=== PATIENT | male | born 1975 | race Caucasian/White ===

== ENCOUNTER 2023-03-08 13:51 | Emergency (ER) | payer OTHER, SELFPAY ==
[2023-03-08 13:53] VITALS: BP 163/112; PULSE 109; RESP 18; TEMP 36.4; O2SAT 99; BMI 32.4
--- NOTE | 2023-03-08 14:21 | ED.ABDPAIN1 ---
HPI - Abdominal Pain General Chief Complaint: Abdominal Pain Stated Complaint: ABDOMEN PAIN Time Seen by Provider: 03/08/23 14:16 Source: patient Mode of arrival: walk-in Limitations: no limitations History of Present Illness HPI narrative: patient states he is having left-sided abdominal pain. His last episode of diverticular disease was approximately three months ago when he took antibiotics. He has not had surgery for this condition. He has had a previous cholecystectomy. The pain is only in his left mid and left lower quadrant. He had some chills at home but doesn't know if he is running a fever. He's not had a vomiting or use of antibiotics recently. He has had some loose stool. He's not seen any bright red blood. Related Data Home Medications Medication Instructions Recorded Confirmed atorvastatin 80 mg tablet 80 mg PO DAILY 03/08/23 03/08/23 cariprazine 6 mg capsule (Vraylar) 6 mg PO DAILY 03/08/23 03/08/23 ciprofloxacin HCl 500 mg tablet 500 mg PO Q12H 03/08/23 03/08/23 clopidogrel 75 mg tablet (Plavix) 75 mg PO DAILY 03/08/23 03/08/23 divalproex 250 mg tablet,delayed 250 mg PO QID 03/08/23 03/08/23 release (Depakote) divalproex 500 mg tablet,delayed 500 mg PO QID 03/08/23 03/08/23 release (Depakote) hydroxyzine HCl 50 mg tablet 50 mg PO Q8H 03/08/23 03/08/23 levothyroxine 125 mcg capsule 125 mcg PO DAILY 03/08/23 03/08/23 liothyronine 5 mcg tablet (Cytomel) 5 mcg PO DAILY 03/08/23 03/08/23 metformin 500 mg 24 hr 500 mg PO BID 03/08/23 03/08/23 tablet,extended release (Glumetza) Allergies Allergy/AdvReac Type Severity Reaction Status Date / Time No Known Drug Allergies Allergy Verified 03/08/23 13:58 PFSH PFS Social History Smoking status: Current every day smoker Exam Narrative Exam Narrative: This document has been composed with a new electronic medical record and dragging voice recognition system. This document may not fully inaccurately reflect the entirety of the patient encounter. this patient was ambulatory to his bed. On examination he is awake alert with mild discomfort into the mid periumbilical and left mid abdomen. Does not appear ill or toxic. Vital signs been reviewed. Constitutional Vital Signs - 24 hr 03/08/23 13:53 03/08/23 15:20 Temperature 97.6 F Pulse Rate [Monitor] 109 H Respiratory Rate 18 Blood Pressure [Left Arm] 163/112 H 148/90 H Pulse Oximetry 99 Oxygen Delivery Method Room Air Respiratory Common normals: normal respiratory effort, no retractions and no use of accessory muscles GI Common normals: Normal to inspection, nondistended, normoactive bowel sounds present Inspection: normal to inspection Auscultation: normoactive bowel sounds Palpation: soft and no hepatosplenomegaly; non-tender, no guarding, no hepatosplenomegaly, no hepatomegaly, no splenomegaly, no hernia, no mass and no pulsatile mass Percussion: normal to percussion Course Vital Signs Vital signs: Vital Signs Temperature 97.6 F 03/08/23 13:53 Pulse Rate 109 H 03/08/23 13:53 Respiratory Rate 18 03/08/23 13:53 Blood Pressure 163/112 H 03/08/23 13:53 Pulse Oximetry 99 03/08/23 13:53 Oxygen Delivery Method Room Air 03/08/23 13:53 Temperature 97.6 F 03/08/23 13:53 Pulse Rate 109 H 03/08/23 13:53 Respiratory Rate 18 03/08/23 13:53 Blood Pressure 148/90 H 03/08/23 15:20 Pulse Oximetry 99 03/08/23 13:53 Oxygen Delivery Method Room Air 03/08/23 13:53 MDM - Abdominal Pain MDM Narrative Medical decision making narrative: after obtaining the history and performing clinical examination laboratory testing and CT imaging were advised. Symptoms to me which just more of a diffuse colitis as opposed to diverticular disease but that cannot be ruled out. Does not have findings of an acute surgical abdomen at this time. His CT scan is consistent with mild diffuse inflammation of the colon with no focal abscess obstruction or other abnormalities. His laboratory testing was reviewed. Findings were discussed in detail with the patient we will start him on antibiotic therapy and clear fluids. Lab Data Labs: Lab Results 03/08/23 Range/Units 14:00 WBC 9.3 (4.0-11.0) 10^3/uL RBC 5.00 (4.70-6.10) 10^6/uL Hgb 15.2 (14.0-18.0) g/dL Hct 44.5 (42.0-54.0) % MCV 89.0 (80.0-94.0) fL MCH 30.4 (25.9-34.0) pg MCHC 34.2 (29.9-35.2) g/dL RDW 12.9 (11.0-15.0) % Plt Count 214 (150-450) 10^3/uL MPV 12.9 (9.5-13.5) fL Neut % (Auto) 55.1 (43.0-75.0) % Lymph % (Auto) 32.5 (20.5-60.0) % [place] % (Auto) 10.4 (1.7-12.0) % Eos % (Auto) 1.4 (0.9-7.0) % Baso % (Auto) 0.3 (0.2-2.0) % Neut # (Auto) 5.1 (1.4-6.5) 10^3/uL Lymph # (Auto) 3.0 (1.2-3.8) 10^3/uL [place] # (Auto) 1.0 H (0.3-0.8) 10^3/uL Eos # (Auto) 0.1 (0.0-0.7) 10^3/uL Baso # (Auto) 0.0 (0.0-0.1) 10^3/uL Abs Immat Gran (auto) 0.03 (0.00-0.03) 10^3/uL Imm/Tot Granulo (auto) 0.3 (0.0-0.5) % Sodium 142 (136-145) mmol/L Potassium 3.7 (3.5-5.1) mmol/L Chloride 105 (98-107) mmol/L Carbon Dioxide 26.1 (21.0-32.0) mmol/L Anion Gap 14.6 BUN 14.0 (7.0-18.0) mg/dL Creatinine 1.02 (0.70-1.30) mg/dL Est GFR ( Amer) >60 (>=60) Est GFR (Non-Af Amer) >60 (>=60) BUN/Creatinine Ratio 13.7 Glucose 116 H (74-106) mg/dL Lactate 1.2 (0.4-2.0) mmol/L Calcium 9.7 (8.5-10.1) mg/dL Total Bilirubin 0.4 (0.2-1.0) mg/dL AST 17 (15-37) U/L ALT 29 (16-63) U/L Alkaline Phosphatase 107 (46-116) U/L Total Protein 8.5 H (6.4-8.2) g/dL Albumin 4.5 (3.4-5.0) g/dL Globulin 4.0 g/dL Albumin/Globulin Ratio 1.1 Discharge Plan Discharge Chief Complaint: Abdominal Pain Clinical Impression: Colitis Patient Disposition: Home, Self-Care Time of Disposition Decision: 16:09 Condition: Good Mode of Transportation: Private Vehicle Prescriptions / Home Meds: No Action metformin [Glumetza] 500 mg tablet,ER regina.retention 24 hr 500 mg PO BID clopidogrel [Plavix] 75 mg tablet 75 mg PO DAILY levothyroxine 125 mcg capsule 125 mcg PO DAILY hydroxyzine HCl 50 mg tablet 50 mg PO Q8H liothyronine [Cytomel] 5 mcg tablet 5 mcg PO DAILY Vraylar 6 mg capsule 6 mg PO DAILY atorvastatin 80 mg tablet 80 mg PO DAILY divalproex [Depakote] 250 mg tablet,delayed release (DR/EC) 250 mg PO QID divalproex [Depakote] 500 mg tablet,delayed release (DR/EC) 500 mg PO QID ciprofloxacin HCl 500 mg tablet 500 mg PO Q12H Rx Instructions: X 7 DAYS Instructions: Colitis (ED) Stand Alone Forms: Portal Instructions Referrals: Lucille Mccord MD [Primary Care Provider] - 1 week Discharge Date/Time: 03/08/23 16:28
--- NOTE | 2023-03-08 14:25 | CT_ITS ---
[address] [address] Patient Name: MALLORY CROWDER MRN: [id number] date: 1975 Sex: M Assigned Patient Location: ER Current Patient Location: Accession/Order Number: [id number] Exam Date: 03/08/2023 14:40 Report Date: 03/08/2023 15:58 At the request of: HERBIE JAY Procedure: CT abdomen pelvis w con EXAMINATION: CT abdomen pelvis w con HISTORY: pain ; abdominal pain, constant nausea and diarrhea COMPARISON: CT abdomen pelvis 01/19/2023 TECHNIQUE: Axial, Coronal, and Sagittal images were obtained without and/or with IV contrast as indicated by examination type. Dose reduction techniques were achieved by using automated exposure control and/or adjustment of mA and/or kV according to patient size and/or use of iterative reconstruction technique. FINDINGS: LUNG BASES: No visible pulmonary or pleural disease. LIVER: No enlargement, atrophy, suspicious density, or significant focal lesion. BILIARY: Cholecystectomy. PANCREAS: No lesion, fluid collection, or abnormal duct dilatation. SPLEEN: No enlargement or focal lesion. ADRENALS: No mass or enlargement. KIDNEYS: No mass, obstruction, or calcification. BOWEL/MESENTERY: Mild circumferential, slightly edematous wall thickening throughout majority of the colon. Fluid-filled loops of small bowel. No bowel obstruction, mass, free air, free fluid. Normal appendix. AORTA/VASCULAR: No aneurysm or dissection. RETROPERITONEUM: No mass or adenopathy. LYMPH NODES: No adenopathy. URINARY BLADDER: No visible focal wall thickening, lesion, or calculus. PELVIC ORGANS: No visible mass. Pelvic organs appropriate for patient age. ABDOMINAL WALL: No mass or hernia. BONES: No bony lesion or fracture. OTHER: Negative. IMPRESSION: 1.Possible mild colitis. Otherwise unremarkable CT abdomen and pelvis. Electronically authenticated by: ZURI SAGE Date: 03/08/2023 15:58
[2023-03-08] MEDS: MORPHINE SULFATE 2 MG/ML SYRINGE IM (14:31)
[2023-03-08] MEDS: 0.9 % SODIUM CHLORIDE 1,000 ML 100 ML IV (14:31)
[2023-03-08] MEDS: ONDANSETRON PF 4 MG/2 ML VIAL IV (14:31)
[2023-03-08 14:44] LABS: Basophils Percent Auto 0.3 % (0.2-2.0); Eosinophils Absolute Auto 0.1 10^3/uL (0.0-0.7); Eosinophils Percent Auto 1.4 % (0.9-7.0); Hematocrit 44.5 % (42.0-54.0); Hemoglobin 15.2 g/dL (14.0-18.0); Immature Granulocytes Abs Auto 0.03 10^3/uL (0.00-0.03); Immature Granulocytes Pct Auto 0.3 % (0.0-0.5); Lymphocytes Percent Auto 32.5 % (20.5-60.0); Mean Corpuscular HGB Conc 34.2 g/dL (29.9-35.2); Mean Corpuscular Hemoglobin 30.4 pg (25.9-34.0); Mean Platelet Volume 12.9 fL (9.5-13.5); Monocytes Percent Auto 10.4 % (1.7-12.0); Neutrophils Absolute Auto 5.1 10^3/uL (1.4-6.5); Neutrophils Percent Auto 55.1 % (43.0-75.0); Platelet Count 214 10^3/uL (150-450); Red Cell Distribution Width 12.9 % (11.0-15.0); White Blood Count 9.3 10^3/uL (4.0-11.0)
[2023-03-08 14:49] LABS: Lactate/Lactic Acid 1.2 mmol/L (0.4-2.0)
[2023-03-08 14:58] LABS: Alanine Aminotransferase 29 U/L (16-63); Albumin Globulin Ratio 1.1; Albumin Level 4.5 g/dL (3.4-5.0); Alkaline Phosphatase 107 U/L (46-116); Anion Gap 14.6; Aspartate Amino Transferase 17 U/L (15-37); BUN Creatinine Ratio 13.7; Bilirubin Total 0.4 mg/dL (0.2-1.0); Calcium 9.7 mg/dL (8.5-10.1); Carbon Dioxide 26.1 mmol/L (21.0-32.0); Chloride 105 mmol/L (98-107); Estimated GFR (African America >60 (>=60); Estimated GFR (Non-African Ame >60 (>=60); Glucose 116 mg/dL (74-106); Potassium 3.7 mmol/L (3.5-5.1); Sodium 142 mmol/L (136-145); Total Protein 8.5 g/dL (6.4-8.2)
[2023-03-08 15:20] VITALS: BP 148/90
== END 2023-03-08 16:28 | disposition home or self-care (01) ==
PROVIDERS: Emergency Provider Emergency Medicine Emergency Medical Services; PCP Specialist
DX: K52.9 Noninfective gastroenteritis and colitis, unspecified (principal); Z90.49 Acquired absence of other specified parts of digestive tract; Z79.890 Hormone replacement therapy; Z79.899 Other long term (current) drug therapy; Z79.84 Long term (current) use of oral hypoglycemic drugs; F17.210 Nicotine dependence, cigarettes, uncomplicated
CPT/HCPCS: 36415; 74177; 80053; 81003; 83605; 85025; 96372; 96374; 99284; Q9967

== ENCOUNTER 2024-02-15 21:17 | Emergency (ER) | payer SELFPAY ==
[2024-02-15] VITALS (10 sets, daily range): BP systolic 153–154; BP diastolic 88–94; PULSE 59–83; TEMP 36.7; O2SAT 79–100; BMI 25.0
--- NOTE | 2024-02-15 21:29 | ECG_ITS ---
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
--- NOTE | 2024-02-15 21:44 | PC.NURSE ---
Pt reports yesterday at work coughing duee to sensatioon of something stuck in throat, then felt a pop and has had burning in throat since. Pt also has a burning chest pain with deep inspiration. Hx CAD and bypass.
--- NOTE | 2024-02-15 21:53 | XR_ITS ---
The [address] [address] Patient Name: MALLORY CROWDER MRN: [id number] date: 1975 Sex: M Assigned Patient Location: ED.MAIN Current Patient Location: ER Accession/Order Number: [id number] Exam Date: 02/15/2024 22:12 Report Date: 02/15/2024 22:47 At the request of: TUTU MARKER Procedure: XR chest 1V EXAM: XR chest 1V HISTORY: CP COMPARISON: None. TECHNIQUE: Single view of the chest FINDINGS: Cardiac megaly. Sternotomy wires. No definitive focal consolidation, pleural effusion, pulmonary congestion or pneumothorax. XR/XR chest 1V IMPRESSION: No acute findings. Electronically authenticated by: PHUONG RODRÍGUEZ Date: 02/15/2024 22:47
--- NOTE | 2024-02-15 21:53 | XR_ITS ---
The [address] [address] Patient Name: MALLORY CROWDER MRN: [id number] date: 1975 Sex: M Assigned Patient Location: ED.MAIN Current Patient Location: ER Accession/Order Number: [id number] Exam Date: 02/15/2024 22:12 Report Date: 02/15/2024 22:56 At the request of: TUTU MARKER Procedure: XR soft tissue neck Examination:XR soft tissue neck INDICATION:? neck mass COMPARISON:None. TECHNIQUE:Frontal/lateral soft tissue neck x-ray images are present. FINDINGS:The oropharyngeal airway is well-maintained. The epiglottis is well visualized and is not inflamed. Prevertebral soft tissues are within normal limits. On the frontal projection, there is asymmetric soft tissue attenuation in the right soft tissue neck which is nonspecific. XR/XR soft tissue neck IMPRESSION: Asymmetric soft tissue density in the right soft tissue neck on the frontal projection. Correlate with physical exam findings. Otherwise unremarkable soft tissue neck x-ray. Electronically authenticated by: ANDRÉS CRAVEN Date: 02/15/2024 22:56
[2024-02-15 21:57] LABS: Basophils Absolute Auto 0.1 10^3/uL (0.0-0.1); Basophils Percent Auto 0.9 % (0.2-2.0); Eosinophils Absolute Auto 0.2 10^3/uL (0.0-0.7); Hematocrit 45.3 % (42.0-54.0); Hemoglobin 15.8 g/dL (14.0-18.0); Immature Granulocytes Abs Auto 0.02 10^3/uL (0.00-0.03); Immature Granulocytes Pct Auto 0.2 % (0.0-0.5); Lymphocytes Absolute Auto 4.3 10^3/uL (1.2-3.8); Mean Corpuscular HGB Conc 34.9 g/dL (29.9-35.2); Mean Corpuscular Hemoglobin 30.4 pg (25.9-34.0); Mean Corpuscular Volume 87.3 fL (80.0-94.0); Mean Platelet Volume 12.8 fL (9.5-13.5); Monocytes Absolute Auto 0.8 10^3/uL (0.3-0.8); Monocytes Percent Auto 8.5 % (1.7-12.0); Neutrophils Absolute Auto 4.5 10^3/uL (1.4-6.5); Neutrophils Percent Auto 45.4 % (43.0-75.0); Platelet Count 209 10^3/uL (150-450); Red Blood Count 5.19 10^6/uL (4.70-6.10); Red Cell Distribution Width 12.7 % (11.0-15.0); White Blood Count 9.9 10^3/uL (4.0-11.0)
[2024-02-15] MEDS: 0.9 % SODIUM CHLORIDE 1,000 ML 1000 ML IV (22:01)
[2024-02-15] MEDS: ASPIRIN 81 MG TAB.CHEW 324 MG PO (22:01)
[2024-02-15 22:12] LABS: D Dimer 0.24 mg/L FEU (<=0.59)
--- NOTE | 2024-02-15 22:13 | ED.CHESTPAI1 ---
HPI - Chest Pain General Chief Complaint: Chest Pain Stated Complaint: Chest Pain, Sore Throat Time Seen by Provider: 02/15/24 21:31 Source: patient and friend Mode of arrival: walk-in Limitations: no limitations History of Present Illness HPI narrative: This 48-year-old male with a history of tobacco use and coronary artery disease who had a double bypass in 2017 presents for evaluation of midsternal chest pain and burning in his throat. He states that he felt a lump in the back of his throat and points to his lower anterior cervical spine area, this was several weeks ago. He states that he thinks that the lump exploded and was bleeding. Since that time he has developed midsternal chest pain and his friend who is with him states when he got up today he felt like he was going to pass out. He has mild shortness of breath. He takes aspirin and a blood thinner, blood pressure medication and a cholesterol medication. He states he took those prior to arrival. He has mild shortness of breath. He denies any dizziness or diaphoresis. When he has the chest pain it is in his left upper chest area. He describes it as a numbing pain he denies that it radiates into his arm back or jaw. He has no abdominal pain nausea vomiting or diarrhea. He has not had any fever. He has no back pain. He does not currently follow-up with a webmaster and has not had a cardiac workup since his bypass surgery in 2017. Related Data Home Medications ?Medication ?Instructions ?Recorded ?Confirmed atorvastatin 80 mg tablet 80 mg PO DAILY 03/08/23 03/08/23 cariprazine 6 mg capsule (Vraylar) 6 mg PO DAILY 03/08/23 03/08/23 ciprofloxacin HCl 500 mg tablet 500 mg PO Q12H 03/08/23 03/08/23 clopidogrel 75 mg tablet (Plavix) 75 mg PO DAILY 03/08/23 03/08/23 divalproex 250 mg tablet,delayed 250 mg PO QID 03/08/23 03/08/23 release (Depakote) divalproex 500 mg tablet,delayed 500 mg PO QID 03/08/23 03/08/23 release (Depakote) hydroxyzine HCl 50 mg tablet 50 mg PO Q8H 03/08/23 03/08/23 levothyroxine 125 mcg capsule 125 mcg PO DAILY 03/08/23 03/08/23 liothyronine 5 mcg tablet (Cytomel) 5 mcg PO DAILY 03/08/23 03/08/23 metformin 500 mg 24 hr 500 mg PO BID 03/08/23 03/08/23 tablet,extended release (gastric retention) (Glumetza) Allergies Allergy/AdvReac Type Severity Reaction Status Date / Time No Known Drug Allergies Allergy Verified 02/15/24 21:29 Review of Systems ROS Status of ROS 10 or more systems reviewed and unremarkable except as noted in history and below [facility] Social History Smoking status: Current every day smoker Exam Narrative Exam Narrative: Vital signs and Nursing Notes reviewed: Patient is afebrile with a normal pulse, blood pressure is elevated at 154/88, he is not hypoxic with pulse ox of 100% on room air General: Nontoxic male, no respiratory distress, he moves easily about the stretcher HEENT: Normocephalic atraumatic, mucous membranes are moist and pink, he is edentulous. Conjunctivae are pink, vision is grossly intact Neck: Supple, no meningeal signs, no anterior or posterior cervical lymphadenopathy, no appreciable palpable mass Chest: Lungs are clear to auscultation with good air entry, there is no wheezing rhonchi or rales appreciated no accessory muscle use, patient is speaking in complete sentences-no chest wall tenderness to palpation CVS: Regular rate and rhythm S1-S2, no murmurs rubs or gallops, pulses are brisk and equal bilaterally ABD: Soft, nondistended, nontender, no rebound guarding or rigidity, bowel sounds are normal, no pulsatile masses appreciated Extremities: Moving all extremities, no lower extremity tenderness or swelling noted, negative Homans' sign, pulses are brisk and equal bilaterally Skin: Normal in appearance without rash,pallor, petechiae or purpura Neuro: No focal deficits Constitutional Vital Signs, click to edit/add: Last Vital Signs Temp 98.0 F 02/15/24 21:22 Pulse 65 02/16/24 00:20 Resp 18 02/16/24 00:20 BP 153/94 H 02/15/24 22:58 Pulse Ox 96 02/16/24 00:20 O2 Del Method Room Air 02/15/24 21:22 Course Vital Signs Vital signs: Vital Signs Temperature 98.0 F 05/15/24 21:22 Pulse Rate 83 02/15/24 21:22 Respiratory Rate 20 02/15/24 21:22 Blood Pressure 154/88 H 02/15/24 21:22 Pulse Oximetry 100 02/15/24 21:22 Oxygen Delivery Method Room Air 02/15/24 21:22 Temperature 98.0 F 02/15/24 21:22 Pulse Rate 65 02/16/24 00:20 Respiratory Rate 18 02/16/24 00:20 Blood Pressure 153/94 H 02/15/24 22:58 Pulse Oximetry 96 02/16/24 00:20 Oxygen Delivery Method Room Air 02/15/24 21:22 MDM - Chest Pain MDM Narrative Medical decision making narrative: This 48-year-old male with a history of heart disease who is an ongoing smoker presents for evaluation of multiple complaints; he states that several weeks ago he had a lump in his lower throat area that he feels opened up and bled. He still has some burning sensation in his anterior throat greatest on the right. He also developed left-sided chest pain earlier today and felt dizzy like he was going to pass out. The chest pain was nonradiating and not associated with dizziness or diaphoresis. He did take his regular medications including aspirin, cholesterol medication and his blood thinner, Plavix, before coming to the emergency department. Upon arrival he was noted to have a mildly elevated blood pressure at 153/94. An EKG was done upon arrival that is a sinus rhythm with a sinus arrhythmia at 70 bpm with no acute changes. An IV was placed and he was medicated with IV fluids and aspirin. Cardiac workup including CBC with differential, comprehensive metabolic profile, D-dimer, troponin and delta troponin was ordered. He has a normal white count and hemoglobin. He has normal electrolytes. These were compared to prior labs and are essentially the same. potassium is mildly low at 3.0 and he was given an oral dose of potassium in the ED. D-dimer was normal. Troponin and delta troponin were both normal. The patient's TSH is elevated. He states that 4 to 5 months ago his TSH was also elevated at that time and Dr. Peterson increased his Synthroid. Chest x-ray was reviewed by radiology and does not show any acute findings. Soft tissue neck x-ray was also reviewed by radiology with some abnormal finding in the soft tissues of the right side of the neck where the patient is having his discomfort. CT scan of the neck with IV contrast was then ordered and is negative for acute findings. The results of the CT scan was discussed with the patient and he was given a copy of the report. Heart score is 3. The patient has remained hemodynamically stable in the emergency department. He has been on the cardiac cath technologist without any ectopy or arrhythmia. He states he is feeling somewhat better after the IV fluids. He was medicated with a dose of Lowry for ongoing chest pain, again non-radiating and going on for a period of time causing him to take multiple doses of ibuprofen. The patient states that he is feeling better but generally just feels weak. I reviewed all of his labs with him. His weakness may be reflective of his thyroid being elevated and a certain state of hypothyroidism. The patient does work nights. He states he does not go to bed until around noon and does sleep well. I offered him referral to outpatient cardiology which he is in agreement with that he does not follow-up with cardiology despite having a double bypass in the past. Smoking cessation was discussed with him as well. Medical Records Data Medical records narrative: [place] [address] XRay Report Signed Patient: MALLORY CROWDER III MR#: [id number] : 1975 Acct:[id number] Age/Sex: 48 / M ADM Date: 02/15/24 Loc: ER Attending Dr: Ordering Physician: Arlyn Cooley Date of Service: 02/15/24 Procedure(s): XR soft tissue neck Accession Number(s): [id number] cc: Arlyn Cooley; CHRIS PETERSON ~ The [place] [id number] Patient Name: MALLORY CROWDER MRN: [id number] date: 1975 Sex: M Assigned Patient Location: ED.MAIN Current Patient Location: ER Accession/Order Number: [id number] Exam Date: 02/15/2024 22:12 Report Date: 02/15/2024 22:56 At the request of: ARLYN COOLEY Procedure: XR soft tissue neck Examination:XR soft tissue neck INDICATION:? neck mass COMPARISON:None. TECHNIQUE:Frontal/lateral soft tissue neck x-ray images are present. FINDINGS:The oropharyngeal airway is well-maintained. The epiglottis is well visualized and is not inflamed. Prevertebral soft tissues are within normal limits. On the frontal projection, there is asymmetric soft tissue attenuation in the right soft tissue neck which is nonspecific. XR/XR soft tissue neck IMPRESSION: Asymmetric soft tissue density in the right soft tissue neck on the frontal projection. Correlate with physical exam findings. Otherwise unremarkable soft tissue neck x-ray. Electronically authenticated by: ANDRÉS CRAVEN Date: 02/15/2024 22:56 [place] [address] XRay Report Signed Patient: MALLORY CROWDER III MR#: [id number] : 1975 Acct:[id number] Age/Sex: 48 / M ADM Date: 02/15/24 Loc: ER Attending Dr: Ordering Physician: Arlyn Cooley Date of Service: 02/15/24 Procedure(s): XR chest 1V Accession Number(s): [id number] cc: Arlyn Cooley; CHRIS PETERSON ~ [facility] [place] [address] Patient Name: MALLORY CROWDER MRN: [facility]:[id number] date: 1975 Sex: M Assigned Patient Location: ED.MAIN Current Patient Location: ER Accession/Order Number: [id number] Exam Date: 02/15/2024 22:12 Report Date: 02/15/2024 22:47 At the request of: ARLYN COOLEY Procedure: XR chest 1V EXAM: XR chest 1V HISTORY: CP COMPARISON: None. TECHNIQUE: Single view of the chest FINDINGS: Cardiac megaly. Sternotomy wires. No definitive focal consolidation, pleural effusion, pulmonary congestion or pneumothorax. XR/XR chest 1V IMPRESSION: No acute findings. Electronically authenticated by: PHUONG RODRÍGUEZ Date: 02/15/2024 22:47 [place] [address] CT Scan Report Signed Patient: MALLORY CROWDER III MR#: [id number] : 1975 Acct:[id number] Age/Sex: 48 / M ADM Date: 02/15/24 Loc: ER Attending Dr: Ordering Physician: Arlyn Cooley Date of Service: 02/15/24 Procedure(s): CT soft tissue neck w con Accession Number(s): [id number] cc: CHRIS PETERSON ~ The [address] [address] Patient Name: MALLORY CROWDER MRN: [id number] date: 1975 Sex: M Assigned Patient Location: ER Current Patient Location: ER Accession/Order Number: [id number] Exam Date: 02/15/2024 23:48 Report Date: 02/16/2024 01:19 At the request of: ARLYN COOLEY Procedure: CT soft tissue neck w con EXAM: CT soft tissue neck w con HISTORY: abn finding on neck x-ray COMPARISON: None. TECHNIQUE: IV contrast-enhanced CT imaging of the neck. This CT exam was performed using one or more of the following dose reduction techniques: Automated exposure control, adjustment of the mA and/or KV according to patient size, or use of iterative reconstruction technique. Unless otherwise stated, incidental findings do not require dedicated follow-up imaging. FINDINGS: The skull base is intact. The paranasal sinuses and mastoid air cells are clear. The nasopharynx, oropharynx, hypopharynx, larynx, and trachea are patent and symmetric. The lung apices are clear. The parotid and submandibular glands are symmetric bilaterally. The thyroid enhances homogeneously. There are shotty bilateral cervical lymph nodes. The bones are intact without acute abnormality. CT/CT soft tissue neck w con IMPRESSION: No acute abnormality. Electronically authenticated by: FELISA BONNER Date: 02/16/2024 01:19 Lab Data Attestation: I reviewed the patient's lab results. Lab results narrative: Labs are reviewed and are normal. Normal troponin and delta troponin Labs: Lab Results 02/15/24 02/15/24 Range/Units 21:35 23:28 WBC 9.9 (4.0-11.0) 10^3/uL RBC 5.19 (4.70-6.10) 10^6/uL Hgb 15.8 (14.0-18.0) g/dL Hct 45.3 (42.0-54.0) % MCV 87.3 (80.0-94.0) fL MCH 30.4 (25.9-34.0) pg MCHC 34.9 (29.9-35.2) g/dL RDW 12.7 (11.0-15.0) % Plt Count 209 (150-450) 10^3/uL MPV 12.8 (9.5-13.5) fL Neut % (Auto) 45.4 (43.0-75.0) % Lymph % (Auto) 43.0 (20.5-60.0) % Gilchrist % (Auto) 8.5 (1.7-12.0) % Eos % (Auto) 2.0 (0.9-7.0) % Baso % (Auto) 0.9 (0.2-2.0) % Neut # (Auto) 4.5 (1.4-6.5) 10^3/uL Lymph # (Auto) 4.3 H (1.2-3.8) 10^3/uL Gilchrist # (Auto) 0.8 (0.3-0.8) 10^3/uL Eos # (Auto) 0.2 (0.0-0.7) 10^3/uL Baso # (Auto) 0.1 (0.0-0.1) 10^3/uL Abs Immat Gran (auto) 0.02 (0.00-0.03) 10^3/uL Imm/Tot Granulo (auto) 0.2 (0.0-0.5) % D-Dimer 0.24 (<=0.59) mg/L FEU Sodium 140 (136-145) mmol/L Potassium 3.0 L (3.5-5.1) mmol/L Chloride 103 (98-107) mmol/L Carbon Dioxide 25.5 (21.0-32.0) mmol/L Anion Gap 14.5 BUN 8.0 (7.0-18.0) mg/dL Creatinine 1.24 (0.70-1.30) mg/dL Est GFR ( Amer) >60 (>=60) Est GFR (Non-Af Amer) >60 (>=60) BUN/Creatinine Ratio 6.5 Glucose 116 H (74-106) mg/dL Calcium 9.6 (8.5-10.1) mg/dL Total Bilirubin 0.6 (0.2-1.0) mg/dL AST 12 L (15-37) U/L ALT 14 L (16-63) U/L Alkaline Phosphatase 81 (46-116) U/L Troponin I High Sens 4.5 5.2 (4.0-76.1) pg/mL Total Protein 8.2 (6.4-8.2) g/dL Albumin 4.5 (3.4-5.0) g/dL Globulin 3.7 g/dL Albumin/Globulin Ratio 1.2 Free T4 1.33 (0.76-1.46) ng/dL TSH & Free T4 Interp 4.923 H (0.358-3.740) uIU/mL ECG Data Attestation: I personally reviewed and interpreted this ECG as follows: (Sinus rhythm with sinus arrhythmia at 70 bpm. Incomplete right bundle branch block, normal axis, normal intervals, no acute ST segment elevation or T wave inversion) Smoking Cessation Time spent discussing smoking cessation with patient: 3 to 10 minutes Patient Acknowledges Need for Cessation: Yes Heart Score History: Slightly/Non-Suspicious ECG: Normal Age: >45-<65 years Risk Factors: >3 Risk Factors/ HX of CAD:2 Troponin: <Normal Limit Total Heart Score Recommendations & Risks:: 3 Discharge Plan Discharge Stand Alone Forms: Portal Instructions Chief Complaint: Chest Pain Clinical Impression: Hypothyroidism, Cervical lymphadenopathy, Atypical chest pain, Hypokalemia Patient Disposition: Home, Self-Care Time of Disposition Decision: 01:47 Condition: Good Prescriptions / Home Meds: No Action metformin [Glumetza] 500 mg tablet,ER regina.retention 24 hr 500 mg PO BID clopidogrel [Plavix] 75 mg tablet 75 mg PO DAILY levothyroxine 125 mcg capsule 125 mcg PO DAILY hydroxyzine HCl 50 mg tablet 50 mg PO Q8H liothyronine [Cytomel] 5 mcg tablet 5 mcg PO DAILY Vraylar 6 mg capsule 6 mg PO DAILY atorvastatin 80 mg tablet 80 mg PO DAILY divalproex [Depakote] 250 mg tablet,delayed release (DR/EC) 250 mg PO QID divalproex [Depakote] 500 mg tablet,delayed release (DR/EC) 500 mg PO QID ciprofloxacin HCl 500 mg tablet 500 mg PO Q12H Rx Instructions: X 7 DAYS Print Language: [place] Instructions: Lymphadenopathy (ED), Hypokalemia (ED), Hypothyroidism (ED), Noncardiac Chest Pain (ED) Referrals: WOOD HERNANDEZ [Physician] - 1 week CHRIS PETERSON [Primary Care Provider] - 1 week
[2024-02-15 22:18] LABS: Alanine Aminotransferase 14 U/L (16-63); Albumin Globulin Ratio 1.2; Albumin Level 4.5 g/dL (3.4-5.0); Alkaline Phosphatase 81 U/L (46-116); Anion Gap 14.5; Aspartate Amino Transferase 12 U/L (15-37); BUN Creatinine Ratio 6.5; Bilirubin Total 0.6 mg/dL (0.2-1.0); Calcium 9.6 mg/dL (8.5-10.1); Carbon Dioxide 25.5 mmol/L (21.0-32.0); Chloride 103 mmol/L (98-107); Estimated GFR (African America >60 (>=60); Estimated GFR (Non-African Ame >60 (>=60); Globulin 3.7 g/dL; Glucose 116 mg/dL (74-106); Sodium 140 mmol/L (136-145); Total Protein 8.2 g/dL (6.4-8.2); Troponin I High Sensitivity 4.5 pg/mL (4.0-76.1)
[2024-02-15 22:22] LABS: TSH W/ REFLEX FT4 4.923 uIU/mL (0.358-3.740)
[2024-02-15 22:47] LABS: Free T4 1.33 ng/dL (0.76-1.46)
--- NOTE | 2024-02-15 23:21 | CT_ITS ---
The [address] [address] Patient Name: MALLORY CROWDER MRN: [id number] date: 1975 Sex: M Assigned Patient Location: ER Current Patient Location: Accession/Order Number: [id number] Exam Date: 02/15/2024 23:48 Report Date: 02/16/2024 01:19 At the request of: TUTU MARKER Procedure: CT soft tissue neck w con EXAM: CT soft tissue neck w con HISTORY: abn finding on neck x-ray COMPARISON: None. TECHNIQUE: IV contrast-enhanced CT imaging of the neck. This CT exam was performed using one or more of the following dose reduction techniques: Automated exposure control, adjustment of the mA and/or KV according to patient size, or use of iterative reconstruction technique. Unless otherwise stated, incidental findings do not require dedicated follow-up imaging. FINDINGS: The skull base is intact. The paranasal sinuses and mastoid air cells are clear. The nasopharynx, oropharynx, hypopharynx, larynx, and trachea are patent and symmetric. The lung apices are clear. The parotid and submandibular glands are symmetric bilaterally. The thyroid enhances homogeneously. There are shotty bilateral cervical lymph nodes. The bones are intact without acute abnormality. CT/CT soft tissue neck w con IMPRESSION: No acute abnormality. Electronically authenticated by: FELISA BONNER Date: 02/16/2024 01:19
[2024-02-15 23:50] LABS: Troponin I High Sensitivity 5.2 pg/mL (4.0-76.1)
[2024-02-16 00:20] VITALS: PULSE 65; O2SAT 96
[2024-02-16] MEDS: ONDANSETRON 4 MG RAPDIS TABLET SL (01:42)
[2024-02-16] MEDS: HYDROCODONE/ACET 5-325 MG TABLET 1 TAB PO (01:42)
[2024-02-16] MEDS: POTASSIUM CHLORIDE 10 MEQ ER TABLET 20 MEQ PO (02:02)
[2024-02-16 02:04] VITALS: BP 148/86; PULSE 65; O2SAT 98
== END 2024-02-16 02:05 | disposition home or self-care (01) ==
PROVIDERS: Emergency Provider Emergency Medicine; PCP Family Medicine
DX: R07.89 Other chest pain (principal); E87.6 Hypokalemia; E03.9 Hypothyroidism, unspecified; R59.0 Localized enlarged lymph nodes; I25.10 Atherosclerotic heart disease of native coronary artery without angina pectoris; Z79.82 Long term (current) use of aspirin; Z79.02 Long term (current) use of antithrombotics/antiplatelets; Z79.899 Other long term (current) drug therapy; Z79.890 Hormone replacement therapy; F17.210 Nicotine dependence, cigarettes, uncomplicated; Z95.1 Presence of aortocoronary bypass graft
CPT/HCPCS: 36415; 70360; 70491; 71045; 80053; 84439; 84443; 84484; 85025; 85378; 93005; 99285; Q9967

== ENCOUNTER 2025-02-06 15:05 | Emergency (ER) | payer SELFPAY ==
[2025-02-06] VITALS (9 sets, daily range): BP systolic 139; BP diastolic 79; PULSE 55–72; TEMP 36.7; O2SAT 96–100
--- NOTE | 2025-02-06 15:25 | ECG_ITS ---
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 Measurements Intervals [place] Rate: 61 P: -7 RI: 154 QRS: 51 QRSD: 102 T: 30 QT: 390 QTc: 393 Interpretive Statements 1100 Sinus rhythm 2440 Incomplete right bundle branch block 9130 borderline ECG Compared to ECG 02/15/2024 21:29:15 Sinus arrhythmia no longer present Electronically Signed On 02-06-2025 18:18:25 EDT by WOOD HERNANDEZ M.D.
--- NOTE | 2025-02-06 15:26 | ED.GENADUL1 ---
HPI HPI - General Adult General Chief complaint: Chest Pain Stated complaint: pain when taking breath Time Seen by Provider: 02/06/25 15:06 Source: patient Mode of arrival: walk-in History of Present Illness HPI narrative: Patient is a 49-year-old male who presents to the emergency department for left-sided chest wall pain that is worse with deep breathing and movement for the last 4 days. Patient states last week he developed flulike symptoms of headache, cough. He is a 1 pack/day cigarette smoker. He states he occasionally has sputum production with coughing but has not had any hemoptysis. He states he has pain in the left anterior, superior lung area with deep breathing and movement, he is concerned he may have pneumonia. He has not had any fevers. 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 He takes Plavix daily. Related Data Home Medications ?Medication ?Instructions ?Recorded ?Confirmed atorvastatin 80 mg tablet 80 mg PO DAILY 03/08/23 02/06/25 cariprazine 6 mg capsule (Vraylar) 6 mg PO DAILY 03/08/23 02/06/25 clopidogrel 75 mg tablet (Plavix) 75 mg PO DAILY 03/08/23 02/06/25 divalproex 250 mg tablet,delayed 250 mg PO QID 03/08/23 02/06/25 release (Depakote) divalproex 500 mg tablet,delayed 500 mg PO QID 03/08/23 02/06/25 release (Depakote) hydroxyzine HCl 50 mg tablet 50 mg PO Q8H 03/08/23 02/06/25 levothyroxine 125 mcg capsule 125 mcg PO DAILY 03/08/23 02/06/25 liothyronine 5 mcg tablet (Cytomel) 5 mcg PO DAILY 03/08/23 02/06/25 metformin 500 mg 24 hr 500 mg PO BID 03/08/23 02/06/25 tablet,extended release (gastric retention) (Glumetza) Previous Rx's ?Medication ?Instructions ?Recorded albuterol sulfate 90 mcg/actuation 2 inh inhalation Q4H PRN shortness 02/06/25 aerosol inhaler of breath or wheezing #8.5 grams doxycycline hyclate 100 mg tablet 100 mg PO BID 10 days #20 tabs 02/06/25 methylprednisolone 4 mg tablets in See Rx Instructions .Route 02/06/25 a dose pack (Medrol (Lorenzo)) .COMPLEX #21 ea Allergies Allergy/AdvReac Type Severity Reaction Status Date / Time No Known Drug Allergies Allergy Verified 02/15/24 21:29 Opioid HPI Opioid Management Most Recent Opioid Data: Last Pain Scale 8 02/16/24, 01:42 Review of Systems ROS Constitutional Denies: fever or chills Ears, nose, mouth, and throat Denies: throat pain or nasal congestion Cardiovascular Reports: chest pain Respiratory Reports: cough; Denies: shortness of breath Gastrointestinal Denies: nausea or vomiting Integumentary/Breast Denies: rash Neurological Reports: headache Hematologic/Lymphatic Reports: easy bruising and easy bleeding PFSH PFS Social History Smoking status: Current every day smoker Little interest or pleasure in doing things: not at all Feeling down, depressed, or hopeless: not at all Exam Narrative Exam Narrative: Gen.: Awake, alert, in no distress Head: Normocephalic, atraumatic ENT: Moist mucous membranes Respiratory: No respiratory distress, lungs clear bilaterally, pain on inspiration. No rashes noted of the chest wall Cardio: Regular rate and rhythm Extremities: Moves extremities equally Psych: Normal mood and affect Neuro: No focal neuro deficit Skin: Warm, dry, intact Constitutional Vital Signs, click to edit/add: Last Vital Signs Temp 98.1 F 02/06/25 15:17 Pulse 72 02/06/25 15:17 Resp 18 02/06/25 15:17 BP 139/79 02/06/25 15:17 Pulse Ox 100 02/06/25 15:17 O2 Del Method Room Air 02/06/25 15:17 Course Vital Signs Vital signs: Vital Signs Temperature 98.1 F 02/06/25 15:17 Pulse Rate 72 02/06/25 15:17 Respiratory Rate 18 02/06/25 15:17 Blood Pressure 139/79 02/06/25 15:17 Pulse Oximetry 100 02/06/25 15:17 Oxygen Delivery Method Room Air 02/06/25 15:17 Temperature 98.1 F 02/06/25 15:17 Pulse Rate 72 02/06/25 15:17 Respiratory Rate 18 02/06/25 15:17 Blood Pressure 139/79 02/06/25 15:17 Pulse Oximetry 100 02/06/25 15:17 Oxygen Delivery Method Room Air 02/06/25 15:17 Medical Decision Making MDM Narrative Medical decision making narrative: Laboratory studies reviewed and noted within normal limits including troponin and D-dimer. Patient has had pain in the chest wall for 4 days, he will be discharged with steroids, antibiotic coverage for possible bronchitis. Suspect pleurisy as the cause of the chest pain. Chest x-ray shows no evidence of acute cardiopulmonary changes and vital signs are stable. Follow-up with PCP and return to the emergency department if symptoms change or worsen. SHARED APC VISIT, PHYSICIAN ATTESTATION: [id number] I performed a substantive part of the MDM during the patient?s E/M visit. I personally made or approved the documented management plan and acknowledge its risk of complications. Medical Records Medical records reviewed: Yes I reviewed the patient's medical records Lab Data Lab results reviewed: Yes I reviewed the patient's lab results Labs: Lab Results 02/06/25 Range/Units 15:30 WBC 4.6 (4.0-11.0) 10^3/uL RBC 4.79 (4.70-6.10) 10^6/uL Hgb 14.9 (14.0-18.0) g/dL Hct 42.1 (42.0-54.0) % MCV 87.9 (80.0-94.0) fL MCH 31.1 (25.9-34.0) pg MCHC 35.4 H (29.9-35.2) g/dL RDW 12.6 (11.0-15.0) % Plt Count 124 L (150-450) 10^3/uL MPV 12.1 (9.5-13.5) fL Neut % (Auto) 43.5 (43.0-75.0) % Lymph % (Auto) 35.7 (20.5-60.0) % [place] % (Auto) 15.4 H (1.7-12.0) % Eos % (Auto) 4.3 (0.9-7.0) % Baso % (Auto) 0.9 (0.2-2.0) % Neut # (Auto) 2.0 (1.4-6.5) 10^3/uL Lymph # (Auto) 1.7 (1.2-3.8) 10^3/uL [place] # (Auto) 0.7 (0.3-0.8) 10^3/uL Eos # (Auto) 0.2 (0.0-0.7) 10^3/uL Baso # (Auto) 0.0 (0.0-0.1) 10^3/uL Abs Immat Gran (auto) 0.01 (0.00-0.03) 10^3/uL Imm/Tot Granulo (auto) 0.2 (0.0-0.5) % PT 10.9 (9.0-11.6) sec INR 1.03 D-Dimer 0.27 (<=0.59) mg/L FEU Sodium 139 (136-145) mmol/L Potassium 3.4 L (3.5-5.1) mmol/L Chloride 101 (98-107) mmol/L Carbon Dioxide 30.8 (21.0-32.0) mmol/L Anion Gap 10.6 BUN 14.0 (7.0-18.0) mg/dL Creatinine 1.09 (0.70-1.30) mg/dL Est GFR ( Amer) >60 (>=60 mL/min/1.73m^2) Est GFR (Non-Af Amer) >60 (>=60 mL/min/1.73m^2) BUN/Creatinine Ratio 12.8 Glucose 104 (74-106) mg/dL Calcium 9.0 (8.5-10.1) mg/dL Magnesium 1.9 (1.8-2.4) mg/dL Total Bilirubin 0.4 (0.2-1.0) mg/dL AST 17 (15-37) U/L ALT 21 (16-63) U/L Alkaline Phosphatase 78 (46-116) U/L Troponin I High Sens 6.4 (4.0-76.1) pg/mL NT-Pro-B Natriuret Pep 65.0 (<=900.0) pg/mL Total Protein 7.5 (6.4-8.2) g/dL Albumin 4.0 (3.4-5.0) g/dL Globulin 3.5 g/dL Albumin/Globulin Ratio 1.1 Imaging Data Chest x-ray: Attestation: I have reviewed the pertinent imaging results. ECG Data Attestation: I personally reviewed and interpreted this ECG as follows: (Normal sinus rhythm at a rate of 61, incomplete right bundle branch block with no acute ST elevation or ectopy. EKG reviewed by attending physician) Discharge Plan Discharge Chief Complaint: Chest Pain Clinical Impression: Atypical chest pain, Pleurisy, Cough Patient Disposition: Home, Self-Care Time of Disposition Decision: 16:26 Condition: Good Prescriptions / Home Meds: New methylprednisolone [Medrol (Lorenzo)] 4 mg tablets,dose pack See Rx Instructions .ROUTE .COMPLEX Qty: 21 0RF Rx Instructions: Taper as directed albuterol sulfate 90 mcg/actuation HFA aerosol inhaler 2 inh inhalation Q4H PRN (Reason: shortness of breath or wheezing) Qty: 8.5 0RF doxycycline hyclate 100 mg tablet 100 mg PO BID 10 Days Qty: 20 0RF No Action metformin [Glumetza] 500 mg tablet,ER regina.retention 24 hr 500 mg PO BID clopidogrel [Plavix] 75 mg tablet 75 mg PO DAILY levothyroxine 125 mcg capsule 125 mcg PO DAILY hydroxyzine HCl 50 mg tablet 50 mg PO Q8H liothyronine [Cytomel] 5 mcg tablet 5 mcg PO DAILY Vraylar 6 mg capsule 6 mg PO DAILY atorvastatin 80 mg tablet 80 mg PO DAILY divalproex [Depakote] 250 mg tablet,delayed release (DR/EC) 250 mg PO QID divalproex [Depakote] 500 mg tablet,delayed release (DR/EC) 500 mg PO QID Print Language: Vietnamese Instructions: Pleurisy (ED), Chest Wall Pain (ED) Referrals: CHRIS PETERSON [Primary Care Provider, Family Practice] - 1 week
[2025-02-06 15:45] LABS: Basophils Percent Auto 0.9 % (0.2-2.0); Eosinophils Absolute Auto 0.2 10^3/uL (0.0-0.7); Eosinophils Percent Auto 4.3 % (0.9-7.0); Hematocrit 42.1 % (42.0-54.0); Hemoglobin 14.9 g/dL (14.0-18.0); Immature Granulocytes Abs Auto 0.01 10^3/uL (0.00-0.03); Immature Granulocytes Pct Auto 0.2 % (0.0-0.5); Lymphocytes Absolute Auto 1.7 10^3/uL (1.2-3.8); Lymphocytes Percent Auto 35.7 % (20.5-60.0); Mean Corpuscular HGB Conc 35.4 g/dL (29.9-35.2); Mean Corpuscular Hemoglobin 31.1 pg (25.9-34.0); Mean Corpuscular Volume 87.9 fL (80.0-94.0); Mean Platelet Volume 12.1 fL (9.5-13.5); Monocytes Absolute Auto 0.7 10^3/uL (0.3-0.8); Monocytes Percent Auto 15.4 % (1.7-12.0); Neutrophils Percent Auto 43.5 % (43.0-75.0); Platelet Count 124 10^3/uL (150-450); Red Blood Count 4.79 10^6/uL (4.70-6.10); Red Cell Distribution Width 12.6 % (11.0-15.0); White Blood Count 4.6 10^3/uL (4.0-11.0)
[2025-02-06] MEDS: METHYLPREDNISOLONE SOD SUCC PF 125 MG/2 ML VIAL IVP (15:56)
[2025-02-06 15:59] LABS: D Dimer 0.27 mg/L FEU (<=0.59); INR 1.03; Prothrombin Time 10.9 sec (9.0-11.6)
[2025-02-06 16:01] LABS: Alanine Aminotransferase 21 U/L (16-63); Albumin Globulin Ratio 1.1; Alkaline Phosphatase 78 U/L (46-116); Anion Gap 10.6; Aspartate Amino Transferase 17 U/L (15-37); BUN Creatinine Ratio 12.8; Bilirubin Total 0.4 mg/dL (0.2-1.0); Carbon Dioxide 30.8 mmol/L (21.0-32.0); Chloride 101 mmol/L (98-107); Estimated GFR (African America >60 (>=60 mL/min/1.73m^2); Estimated GFR (Non-African Ame >60 (>=60 mL/min/1.73m^2); Globulin 3.5 g/dL; Glucose 104 mg/dL (74-106); Potassium 3.4 mmol/L (3.5-5.1); Sodium 139 mmol/L (136-145); Total Protein 7.5 g/dL (6.4-8.2)
[2025-02-06 16:08] LABS: Magnesium 1.9 mg/dL (1.8-2.4); Troponin I High Sensitivity 6.4 pg/mL (4.0-76.1)
== END 2025-02-06 16:39 | disposition home or self-care (01) ==
PROVIDERS: Physician Assistant; Emergency Provider Emergency Medicine; PCP Family Medicine
DX: R07.89 Other chest pain (principal); R09.1 Pleurisy; R05.9 Cough, unspecified; F17.210 Nicotine dependence, cigarettes, uncomplicated; Z95.1 Presence of aortocoronary bypass graft; Z79.02 Long term (current) use of antithrombotics/antiplatelets
CPT/HCPCS: 36415; 71045; 80053; 83735; 83880; 84484; 85025; 85378; 85610; 93005; 96374; 99285; J2919